=== PATIENT | female | born 1960 | race Caucasian/White ===

== ENCOUNTER 2016-08-08 10:43 | Observation (INO) | payer BC ==
[~2016-08-08] VITALS: Ht 165.1 cm; Wt 64.8 kg
[2016-08-08] MEDS ORDERED: NITROGLYCERIN 0.4 MG SL PER TAB CHARGE SL PRN ×2 (11:30→13:45)
[2016-08-08] MEDS ORDERED: ASPIRIN 81 MG CHEW PO STA (11:30)
[2016-08-08] MEDS ORDERED: SODIUM CHLORIDE 0.9% 1000ML 1,000 ML IV STA (11:30)
[2016-08-08 11:44] LABS: BASO % 0.6 %; BASO ABS # 0.05 K/uL (0-0.2); COMPLETE YES; EOS % 1.6 %; HEMATOCRIT 44.7 % (37-47); IG% 0.1 %; LYMPH % 24.5 %; LYMPH ABS # 2.02 K/uL (1.2-3.4); MEAN CELL VOLUME 88.7 fL (80-100); MEAN CORPUSCULAR HEMOGLOBIN 31.3 pg (25-34); MEAN CORPUSCULAR HGB CONC 35.3 g/dl (32-36); MEAN PLATELET VOLUME 9.6 fL (7.4-10.4); MONO % 8.8 %; NEUT % 64.4 %; PLATELET COUNT 402 K/uL (130-400); RED BLOOD COUNT 5.04 M/uL (4.2-5.4); WHITE BLOOD COUNT 8.26 K/uL (4.8-10.8)
[2016-08-08] MEDS ORDERED: ESCI10TA17 PO (11:51)
[2016-08-08 11:53] LABS: BUN/CREATININE RATIO 12.6 (10-20); CALCIUM 9.8 mg/dl (8.5-10.1); CREATININE 0.69 mg/dl (0.60-1.20); POTASSIUM 4.1 mmol/L (3.5-5.1)
--- NOTE | 2016-08-08 11:54 | DIAGNOSTIC IMAGING REPORT ---
CHEST ONE VIEW PORTABLE CLINICAL HISTORY: Chest pain. Chest pressure. COMPARISON STUDY: No previous studies for comparison. FINDINGS: Lung volumes are normal. Lungs are clear. There is no pneumothorax or pleural effusion. Cardiac size is normal. Mediastinal contours are normal. A suspected nipple shadow projects over the left lower lung. IMPRESSION: No acute cardiopulmonary findings. Electronically signed by: Max Gandhi M.D. 08/08/2016 11:52 AM Dictated Date/Time: 08/08/2016 11:52 AM
[2016-08-08 11:58] LABS: CKMB/CK RATIO 1.2 (0-3.0)
[2016-08-08] MEDS ORDERED: ONDANSETRON INJ 2 MG/ML 2 ML VIAL IV PRN (13:45)
[2016-08-08] MEDS ORDERED: ALUMINUM/MAGNESIUM/SIMETH (MAALOX MAX) 30 ML UDC PO PRN (13:45)
[2016-08-08] MEDS ORDERED: ACETAMINOPHEN 325 MG TAB PO PRN (13:45)
[2016-08-08] MEDS ORDERED: MAGNESIUM HYDROXIDE SUSP 30 ML UDC PO PRN (13:45)
[2016-08-08] MEDS ORDERED: MoRPHine SULFATE 2 MG/ML CARP IV PRN (13:45)
[2016-08-08] MEDS ORDERED: LORAZEPAM 2 MG/ML 1 ML VIAL IV PRN (13:45)
[2016-08-08] MEDS ORDERED: BISACODYL 10 MG SUPP PR PRN (13:45)
[2016-08-08] MEDS ORDERED: ZOLPIDEM TARTRATE 5 MG TAB PO PRN (13:45)
[2016-08-08] MEDS ORDERED: DiphenhydrAMINE HCL 50 MG/ML VIAL IV PRN (13:45)
[2016-08-08] MEDS ORDERED: PROMETHAZINE HCL INJ 12.5 MG in SODIUM CHLORIDE 0.9% 50ML 50 ML IV PRN (13:45)
--- NOTE | 2016-08-08 14:08 | History and Physical ---
History & Physical Date & Time of Service: Aug 08, 2016 at 13:56 Chief Complaint: Chest Pressure Since Last Evening Primary Care Physician: Matthew Bergman Jr, D.O. History of Present Illness Source: patient, clinic records, hospital records This patient is a very pleasant 56-year-old female that presents the emergency department complaining of a pressure-like sensation in her chest that started last night around 11 PM. She went out to dinner, came home and fell asleep on the couch. The pain woke her up from sleep. The pain was fairly constant overnight waking her up several times. The patient tried to go to work today and ended up seeing the nurse. She was eventually sent to the emergency department for evaluation. She denies any shortness of breath, however the pain is exacerbated with deep breathing. She also noticed the pain worse with movement particularly when shifting last night in bed. She has not noticed any significant dyspnea on exertion over the last several weeks. She did have an episode of similar chest pain that she related to a musculoskeletal strain approximately 1 month ago. She denies any personal history of coronary artery disease. No recent cough, fever or chills. The patient does note a significant amount of stress related to her family and some with work. Past Medical/Surgical History History of hypertension. The patient was on medication. This was discontinued with lifestyle changes History of fibroids History of depression Family History Mother-TIAs Grandmother- of an [place] Social History Smoking Status: Current Every Day Smoker (smokes approximately 10 cigarettes per day. This is been transient over the years. 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) Multi-Drug Resistant Organisms History of MDRO: No Allergies Coded Allergies: Penicillins (Unverified Allergy, Unknown, RASH, 08/08/16) Home Medications Scheduled Escitalopram (Lexapro), 10 MG PO HS Review of Systems 10 system review performed and negative unless noted in HPI or below Physical Exam Vital Signs Date Time Temp Pulse Resp B/P Pulse Ox O2 Delivery O2 Flow Rate FiO2 08/08/16 13:30 65 16 157/89 95 Room Air 08/08/16 13:17 68 08/08/16 12:47 65 18 116/64 98 Room Air 08/08/16 12:00 62 21 120/87 08/08/16 11:10 76 08/08/16 11:00 83 20 08/08/16 10:52 36.6 74 18 160/94 98 Room Air 08/08/16 10:52 98 Room Air 08/08/16 10:50 98 Room Air General Appearance: + mild distress (mildly anxious in appearance) Head: normocephalic Eyes: EOMI Neck: no JVD Respiratory/Chest: lungs clear Cardiovascular: regular rate, rhythm Abdomen/GI: normal bowel sounds, non tender, soft Extremities/Musculoskelatal: no calf tenderness, no pedal edema Neurologic/Psych: no motor/sensory deficits, oriented x 3 Skin: warm/dry Diagnostics Laboratory Results Results Past 24 Hours Test 08/08/16 10:55 08/08/16 11:37 08/08/16 13:34 Range/Units White Blood Count 8.26 4.8-10.8 K/uL Red Blood Count 5.04 4.2-5.4 M/uL Hemoglobin 15.8 12.0-16.0 g/dL Hematocrit 44.7 37-47 % Mean Corpuscular Volume 88.7 80-100 fL Mean Corpuscular Hemoglobin 31.3 25-34 pg Mean Corpuscular Hemoglobin Concent 35.3 32-36 g/dl Platelet Count 402 130-400 K/uL Mean Platelet Volume 9.6 7.4-10.4 fL Neutrophils (%) (Auto) 64.4 % Lymphocytes (%) (Auto) 24.5 % Monocytes (%) (Auto) 8.8 % Eosinophils (%) (Auto) 1.6 % Basophils (%) (Auto) 0.6 % Neutrophils # (Auto) 5.32 1.4-6.5 K/uL Lymphocytes # (Auto) 2.02 1.2-3.4 K/uL Monocytes # (Auto) 0.73 0.11-0.59 K/uL Eosinophils # (Auto) 0.13 0-0.5 K/uL Basophils # (Auto) 0.05 0-0.2 K/uL RDW Standard Deviation 46.2 36.4-46.3 fL RDW Coefficient of Variation 14.2 11.5-14.5 % Immature Granulocyte % (Auto) 0.1 % Immature Granulocyte # (Auto) 0.01 0.00-0.02 K/uL Sodium Level 140 136-145 mmol/L Potassium Level 4.1 3.5-5.1 mmol/L Chloride Level 107 98-107 mmol/L Carbon Dioxide Level 23 21-32 mmol/L Anion Gap 10.0 3-11 mmol/L Blood Urea Nitrogen 9 7-18 mg/dl Creatinine 0.69 0.60-1.20 mg/dl Est Creatinine Clear Calc Drug Dose 81.9 ml/min Estimated GFR () 112.8 Estimated GFR (Non- 97.3 BUN/Creatinine Ratio 12.6 10-20 Random Glucose 92 70-99 mg/dl Calcium Level 9.8 8.5-10.1 mg/dl Total Bilirubin 0.4 0.2-1 mg/dl Direct Bilirubin 0.1 0-0.2 mg/dl Aspartate Amino Transf (AST/SGOT) 19 15-37 U/L Alanine Aminotransferase (ALT/SGPT) 19 12-78 U/L Alkaline Phosphatase 87 45-117 U/L Total Creatine Kinase 73 26-192 U/L Creatine Kinase MB 0.9 0.5-3.6 ng/ml Creatine Kinase MB Ratio 1.2 0-3.0 Total Protein 7.4 6.4-8.2 gm/dl Albumin 4.1 3.4-5.0 gm/dl Lipase 357 73-393 U/L Bedside Troponin I 0.000 0-0.045 ng/ml EKG Initial EKG shows normal sinus rhythm [address] elevation noted in V2 Repeat EKG shows normal sinus rhythm with a rate of 64 bpm Again questionable slight ST elevation in V2 T-wave inversion also noted in V2 Impression Assessment and Plan 56-year-old female with a history of hypertension and smoking presents emergency department with a chest pressure since last night at 11 PM. Initial cardiac enzymes in the emergency department negative. Questionable slight ST elevation in V2 with inverted T waves chest pain -observe in telemetry -follow cardiac enzymes every 8 hr x 2 -daily EKG -Check echo in the morning -NPO after midnight -EKG with worsening pain -continue nitroglycerin SL for CP Hypertension-patient notes that she was able to discontinue her hypertensive medications when she quit smoking. She is mildly hypertensive now -Continue to monitor overnight -If BP remains elevated, consider initiation of a low-dose lisinopril Depression -Continue Lexapro 10 mg daily -Patient also appears anxious, she may need low-dose Ativan overnight DVT prophylaxis -Encourage ambulation -TEDS, SCDs -Consider initiation of chemical means of prophylaxis as the patient is not discharged tomorrow CODE STATUS -LEVEL I FULL CODE VTE Prophylaxis VTE Risk Assessment Done? Y/N: Yes Risk Level: Low Given or contraindicated: T.E.DAshanti Stockings, SCD's Assessment and Plan Attending addendum: I have seen and examined this patient, have directed their medical care, and agree with the H&P as noted above.
[2016-08-08 14:10] VITALS: O2SAT 95; Ht 165.1 cm; Wt 64.8 kg
[2016-08-08] MEDS ORDERED: IV FLUIDS COMPLETED PRN (14:15)
[2016-08-08 14:35] LABS: CKMB/CK RATIO 1.5 (0-3.0)
[2016-08-08 15:27] VITALS: O2SAT 96
--- NOTE | 2016-08-08 15:35 | EMERGENCY ROOM VISIT NOTE ---
ED Visit Note First contact with patient: 11:11 Chief Complaint: Chest pain. History of Present Illness: Ms. Pruitt is a 56 year-old white female who ambulates into the ED complaining of chest tightness. Historically patient reports she has a history of hypertension but no coronary artery disease. Additionally she denies diabetes, dyslipidemia and family history of heart disease. Patient reports an acute onset of tightness that started approximately 13 hours ago. Since that time the pain has been has been constant. She places her discomfort over the left sternal border and into the left anterior chest. She reports it initially started while she was moving from the sitting to the standing position to get ready for bed. Initially her discomfort was rated 7/ 10 and currently the discomfort is rated 4/10. The pain is nonradiating. She reports moving from the lying to the sitting or standing position increases her discomfort and moving from the sitting to the lying position decreases her discomfort. She did see the school nurse. Prior to arrival at the hospital and she was given Tums without relief. Associated with the discomfort there has been mild intermittent nausea. Patient denies fevers, chills, sweats, skin eruptions, skin color changes, upper respiratory tract symptoms, wheezing, cough shortness of breath, orthopnea , dependent edema, previous clots, claudication, cramping, recent surgery/ inactivity/extended travel, abdominal pain, nausea, vomiting, diarrhea, constipation, rectal bleeding, black/tarry stools, urinary symptoms, back/flank pain. Review of Systems: As noted above in history of present illness. All body systems were reviewed and found to be negative as noted above. Past Medical History: As previously noted, GERD and status post wisdom teeth extraction. Current Medications:Lexapro. Allergies to Medications: Penicillins. Social History: Patient is currently employed; she feels safe in her home environment; she admits to tobacco and alcohol use. Physical Examination: Vital Signs: Date Time Temp Pulse Resp B/P Pulse Ox O2 Delivery O2 Flow Rate FiO2 08/08/16 14:59 132/81 08/08/16 14:35 70 21 08/08/16 14:10 95 Room Air 08/08/16 14:05 70 17 99 08/08/16 13:35 69 19 97 08/08/16 13:30 65 16 157/89 95 Room Air 08/08/16 13:27 157/89 08/08/16 13:17 68 08/08/16 13:05 63 26 08/08/16 12:47 65 18 116/64 98 Room Air 08/08/16 12:43 116/64 08/08/16 12:05 59 19 08/08/16 12:00 62 21 120/87 08/08/16 11:10 76 08/08/16 11:00 83 20 08/08/16 10:52 36.6 74 18 160/94 98 Room Air 08/08/16 10:52 98 Room Air 08/08/16 10:50 98 Room Air GENERAL: 56-year-old female in mild distress due to pain, nontoxic-appearing, afebrile and hemodynamically stable. NEUROLOGICAL: Awake, alert and oriented to person, place and time. Answering questions appropriately and following commands. Normal gait. Good hand eye coordination. SKIN: Warm, dry and pink. No soft tissue eruptions or trauma noted. HEENT: Atraumatic and normocephalic. PERRLA. Sclera white and conjunctiva pink. Oral cavity moist and pink. Pharynx is nonerythematous or edematous. Speech normal. No lymphadenopathy. Trachea midline. No jugular venous distention. No carotid bruits. BACK: No tenderness over the bony spine. No CVA tenderness. THORAX: Lungs sounds are clear to auscultation and equal bilaterally with symmetrical chest wall. No wheezing, rales or rhonchi. No crepitus, tenderness , subcutaneous air or deformities noted. HEART: Regular rate and rhythm. No gallops, rubs or murmurs are appreciated. No lifts, heaves or thrills. PMI is not displaced. ABDOMEN: Flat, soft and nontender. Positive bowel sounds in all quadrants. No guarding, rigidity or organomegaly. EXTREMITIES: Moves all extremities well on command and with purpose. All distal neurovascular statuses are intact and equal bilaterally. No dependent edema or calf tenderness/cords. ED Course: Patient is assessed as noted above. Laboratory Testing: Test 08/08/16 10:55 08/08/16 11:37 08/08/16 14:00 Range/Units White Blood Count 8.26 4.8-10.8 K/uL Red Blood Count 5.04 4.2-5.4 M/uL Hemoglobin 15.8 12.0-16.0 g/dL Hematocrit 44.7 37-47 % Mean Corpuscular Volume 88.7 80-100 fL Mean Corpuscular Hemoglobin 31.3 25-34 pg Mean Corpuscular Hemoglobin Concent 35.3 32-36 g/dl Platelet Count 402 130-400 K/uL Mean Platelet Volume 9.6 7.4-10.4 fL Neutrophils (%) (Auto) 64.4 % Lymphocytes (%) (Auto) 24.5 % Monocytes (%) (Auto) 8.8 % Eosinophils (%) (Auto) 1.6 % Basophils (%) (Auto) 0.6 % Neutrophils # (Auto) 5.32 1.4-6.5 K/uL Lymphocytes # (Auto) 2.02 1.2-3.4 K/uL Monocytes # (Auto) 0.73 0.11-0.59 K/uL Eosinophils # (Auto) 0.13 0-0.5 K/uL Basophils # (Auto) 0.05 0-0.2 K/uL RDW Standard Deviation 46.2 36.4-46.3 fL RDW Coefficient of Variation 14.2 11.5-14.5 % Immature Granulocyte % (Auto) 0.1 % Immature Granulocyte # (Auto) 0.01 0.00-0.02 K/uL Sodium Level 140 136-145 mmol/L Potassium Level 4.1 3.5-5.1 mmol/L Chloride Level 107 98-107 mmol/L Carbon Dioxide Level 23 21-32 mmol/L Anion Gap 10.0 3-11 mmol/L Blood Urea Nitrogen 9 7-18 mg/dl Creatinine 0.69 0.60-1.20 mg/dl Est Creatinine Clear Calc Drug Dose 81.9 ml/min Estimated GFR () 112.8 Estimated GFR (Non- 97.3 BUN/Creatinine Ratio 12.6 10-20 Random Glucose 92 70-99 mg/dl Calcium Level 9.8 8.5-10.1 mg/dl Total Bilirubin 0.4 0.2-1 mg/dl Direct Bilirubin 0.1 0-0.2 mg/dl Aspartate Amino Transf (AST/SGOT) 19 15-37 U/L Alanine Aminotransferase (ALT/SGPT) 19 12-78 U/L Alkaline Phosphatase 87 45-117 U/L Total Creatine Kinase 73 59 26-192 U/L Creatine Kinase MB 0.9 0.9 0.5-3.6 ng/ml Creatine Kinase MB Ratio 1.2 1.5 0-3.0 Total Protein 7.4 6.4-8.2 gm/dl Albumin 4.1 3.4-5.0 gm/dl Lipase 357 73-393 U/L Bedside Troponin I 0.000 0-0.045 ng/ml Troponin I < 0.015 0-0.045 ng/ml Radiological Testing: EKG: Was read by myself and reviewed with Dr. Daniel; shows normal sinus rhythm with ventricular rate of [address] changes indicating ischemia , injury or infarction. Normal intervals and complexes. No previous EKGs available on file for comparison. Patient was hydrated with normal saline and she received 324 mg of aspirin by mouth and three 0.4 mg of nitroglycerin sublingually; this relieved her discomfort. Patient was reassessed multiple times during her stay in the emergency department. Patient's case was reviewed with Dr. Daniel; we agreed on diagnostic approach, treatment, disposition and plan. Patient's case was consulted with case management and Dr. Orellana, hospitalist; for medical observation/admission. Patient was educated about today's findings. Clinical Impression: Acute chest pain. Decision-Making: Initially my differential diagnosis I considered acute coronary syndrome, thoracic aneurysm, pneumothorax, pneumonia, pulmonary embolisms and other causes. Disposition and Plan:patient be brought in the hospital for observation/ admission; please see 's notes and orders for final disposition and plan.
[2016-08-08 16:08] VITALS: BP 147/85; PULSE 65; TEMP 37; O2SAT 97
[2016-08-08] MEDS ORDERED: ESCITALOPRAM OXALATE 10 MG TAB PO SCH (21:00)
[2016-08-08] MEDS ORDERED: DOCUSATE SODIUM 100 MG CAP PO SCH (21:00)
--- NOTE | 2016-08-18 19:09 | Discharge Summary ---
Discharge Summary Admission Date: Aug 08, 2016 at 13:43 Discharge Date: Aug 08, 2016 Discharge Disposition: Home (AMA) Hospital Course 56-year-old female with a history of hypertension and smoking presents emergency department with a chest pressure since last night at 11 PM. Initial cardiac enzymes in the emergency department negative. Questionable slight ST elevation in V2 with inverted T waves PT LEFT AMA DepressionLexapro 10 mg daily - CODE STATUS -LEVEL I FULL CODE This includes examination of the patient, discharge planning, medication reconciliation, and communication with other providers. Discharge Instructions Please refer to the electronic Patient Visit Report (Discharge Instructions) for additional information.
== END 2016-08-08 19:30 | disposition left against medical advice (07) ==
LOC: ENRESERVDT → ENRESERVTM → C.EDB 10:44 → C.MED 13:43
PROVIDERS: ADMIT Hospitalist; ATTEND Hospitalist
DX: R07.9 Chest pain, unspecified (principal); K21.9 Gastro-esophageal reflux disease without esophagitis; F32.9 Major depressive disorder, single episode, unspecified; F17.210 Nicotine dependence, cigarettes, uncomplicated; I10 Essential (primary) hypertension; Z88.0 Allergy status to penicillin; Z82.3 Family history of stroke; Z82.49 Family history of ischemic heart disease and other diseases of the circulatory system

== ENCOUNTER → 2016-08-29 | Outpatient (CLI) | payer BC ==
[~2016-08-29] MED LIST: ESCI10TA17 PO
[2016-08-29 09:50] LABS: CKMB/CK RATIO 0.9 (0-3.0)
--- NOTE | 2016-08-29 13:06 | EXERCISE STRESS ECHO ---
*NOTICE TO RECEIVING LIBERTARIAN AGENCY This information is strictly Confidential and protected under [place] law. [place] law prohibits you from making any further disclosure of this information unless further disclosure is expressly permitted by the written consent of the person to whom it pertains or is authorized by law. A general authorization for the release of medical or other information is not sufficient for this purpose. Hospital accepts no responsibility if the information is made available to any other person, INCLUDING THE PATIENT. Interpretation Summary * Name: BALBINA GONZALES Study Date: 08/29/2016 08:48 AM BP: 146/78 mmHg * Patient Location: [facility]\S\N278\S\1 HR: 71 * : 1960 (M/d/yyyy) Gender: Female Height: 65 in * Age: 56 yrs Ethnicity: CA Weight: 140 lb * Ordering Physician: Matthew Bergman * Referring Physician: Matthew Bergman D.O. * Performed By: Martha Lange RCS * * Reason For Study: Exertional Chest Pain * BSA: 1.7 m2 * -- Conclusions -- * Normal stress echocardiogram at 9.7 METS and a peak heart rate of >100% predicted maximum. * No exercise induced chest pain. * No ECG changes. * Baseline ECG notes normal left ventricular systolic function and no significant pathology. Procedure Details * ECHOEX, CPT #[id number] * ECHO COLOR FLOW, CPT #[id number] * ECHO DOPPLER, CPT #[id number] Left Ventricle * The left ventricle is normal in size. * There is normal left ventricular wall thickness. * Ejection Fraction = 55-60%. * Resting wall motion: Normal. Stress wall motion: Appropriate increase in Left ventricular systolic function and decrease in cavity size. No stress induced segmental wall motion abnormalities. Right Ventricle * The right ventricle is normal in size and function. Atria * The left atrial size is normal. * Right atrial size is normal. * No ASD detected; PFO is not assessed. Mitral Valve * The mitral valve is normal in structure and function. * There is no mitral valve stenosis. * There is trace mitral regurgitation. Tricuspid Valve * The tricuspid valve is normal in structure and function. * There is trace tricuspid regurgitation. Aortic Valve * The aortic valve is normal in structure and function. * No hemodynamically significant valvular aortic stenosis. * There is no significant aortic regurgitation. Pulmonic Valve * The pulmonary valve is not well seen, but the Doppler examination is normal without significant regurgitation or stenosis. * There is no significant pulmonary regurgitation. Great Vessels * The aortic root is not well visualized. Pericardium * There is no pericardial effusion. Stress Parameters * The baseline ECG displays normal sinus rhythm. * Stress ECG: No ST changes. No arrhythmias. * The stress portion of this study was personally supervised by the undersigned interpreting physician. * Rest heart rate was '71' BPM. * Rest blood pressure was '146/78' * Maximum heart rate achieved was 176 bpm. * Maximum heart rate was 107 % of maximum age-predicted heart rate. * Maximum blood pressure was '205/92' * Total exercise time was '7:46' * Maximum exercise MET level achieved was '9.7' METS * Maximum treadmill speed was '3.4' miles per hour. * Maximum treadmill elevation was '14'% grade. * Exercise was terminated due to 'fatigue after achieving target heart rate' MMode 2D Measurements and Calculations IVSd 0.99 cm IVSs 1.2 cm LVIDd 4.4 cm LVIDs 2.9 cm LVPWd 0.89 cm LVPWs 1.3 cm IVS/LVPW 1.1 FS 33.5 % EDV(Teich) 86.1 ml ESV(Teich) 32.3 ml EF(Teich) 62.5 % EDV(cubed) 83.2 ml ESV(cubed) 24.5 ml EF(cubed) 70.6 % % IVS thick 19.3 % % LVPW thick 45.4 % LV mass(C)d 133.9 grams LV mass(C)dI 78.8 grams/m\S\2 LV mass(C)s 109.5 grams LV mass(C)sI 64.4 grams/m\S\2 CO(Teich) 3.9 l/min CI(Teich) 2.3 l/min/m\S\2 SV(Teich) 53.8 ml SI(Teich) 31.6 ml/m\S\2 CO(cubed) 4.2 l/min CI(cubed) 2.5 l/min/m\S\2 SV(cubed) 58.7 ml SI(cubed) 34.5 ml/m\S\2 Ao root diam 2.6 cm Ao root area 5.5 cm\S\2 ACS 1.6 cm LA dimension 3.0 cm LA/Ao 1.1 LVAd ap4 26.4 cm\S\2 LVLd ap4 7.5 cm EDV(MOD-sp4) 77.2 ml LVAs ap4 16.3 cm\S\2 LVLs ap4 6.3 cm ESV(MOD-sp4) 35.1 ml EF(MOD-sp4) 54.5 % LVAd ap2 27.2 cm\S\2 LVLd ap2 8.1 cm EDV(MOD-sp2) 78.2 ml LVAs ap2 16.9 cm\S\2 LVLs ap2 6.3 cm ESV(MOD-sp2) 38.7 ml EF(MOD-sp2) 50.5 % CO(MOD-sp4) 3.0 l/min CI(MOD-sp4) 1.8 l/min/m\S\2 SV(MOD-sp4) 42.1 ml SI(MOD-sp4) 24.8 ml/m\S\2 CO(MOD-sp2) 2.8 l/min CI(MOD-sp2) 1.7 l/min/m\S\2 SV(MOD-sp2) 39.5 ml SI(MOD-sp2) 23.2 ml/m\S\2 Doppler Measurements and Calculations MV E max carole 82.5 cm/sec MV A max carole 68.3 cm/sec MV E/A 1.2 MV P1/2t max carole 93.4 cm/sec MV P1/2t 80.1 msec MVA(P1/2t) 2.7 cm\S\2 MV dec slope 341.6 cm/sec\S\2 MV dec time 0.24 sec Ao V2 max 118.7 cm/sec Ao max PG 5.6 mmHg Ao max PG (full) 1.0 mmHg LV V1 max PG 4.6 mmHg LV V1 max 107.2 cm/sec PA V2 max 91.1 cm/sec PA max PG 3.3 mmHg TR max carole 196.1 cm/sec
== END | disposition home or self-care (01) ==
LOC: C.CPL 08:11
DX: R07.89 Other chest pain (principal); I10 Essential (primary) hypertension

== ENCOUNTER → 2017-07-25 | Outpatient (CLI) | payer BC | END | disposition home or self-care (01) | LOC: C.LAB 14:43 | DX: M19.90 Unspecified osteoarthritis, unspecified site (principal) ==